=== PATIENT | female | born 1960 | race Caucasian/White ===

== ENCOUNTER 2018-04-04 05:52 | Day surgery (SDC) | payer MEDICARE, BC, MEDICAID ==
[2018-04-04 06:48] VITALS: BP 116/72; PULSE 94; TEMP 98.3
[2018-04-04] MEDS ORDERED: ADVIL200 MG PO (07:20)
[2018-04-04] MEDS ORDERED: ANTACID500 M1 CHEW (07:21)
[2018-04-04] MEDS ORDERED: BENEFIBER PO (07:21)
[2018-04-04] MEDS ORDERED: CALAMINE 180 M180 ML TP (07:22)
[2018-04-04] MEDS ORDERED: CLARITIN 1010 MG/TAB PO (07:22)
[2018-04-04] MEDS ORDERED: DEBROX OT (07:23)
[2018-04-04] MEDS ORDERED: DESITIN RAPID REL13% TP (07:24)
[2018-04-04] MEDS ORDERED: IMODIUM 2MG CAPS2 MG PO (07:24)
[2018-04-04] MEDS ORDERED: MAALOX ADVANCED1 CTB PO (07:25)
[2018-04-04] MEDS ORDERED: MILK OF MA400 MG/52 PO (07:26)
[2018-04-04] MEDS ORDERED: METAMUCIL3.4 GM/DOS PO (07:26)
[2018-04-04] MEDS ORDERED: MIRALAX PA17 GM/Dose PO (07:27)
[2018-04-04] MEDS ORDERED: PEPTO BISMOL262 MG PO (07:27)
[2018-04-04] MEDS ORDERED: ATIVAN 1MG T1 MG/TAB PO (07:28)
[2018-04-04] MEDS ORDERED: ROBITUSSIN DM 105 ML PO (07:28)
[2018-04-04] MEDS ORDERED: TRIAMCINOLONE A15 G3 TP (07:29)
[2018-04-04] MEDS ORDERED: SPECTAZOLE 1% C15 GM TP (07:30)
[2018-04-04] MEDS ORDERED: TYLENOL 325MG325 MG PO (07:31)
[2018-04-04] MEDS ORDERED: VANICREAM LITE240 ML TP (07:32)
[2018-04-04 10:10] VITALS: BP 128/66; PULSE 82; TEMP 97.7
[2018-04-04 10:22] VITALS: TEMP 97.2
[2018-04-04 10:25] VITALS: BP 125/66; PULSE 81
[2018-04-04 10:40] VITALS: BP 124/68; PULSE 78
== END 2018-04-04 12:00 | disposition home or self-care (01) ==
LOC: SDCO 05:52
DX: K08.89 Other specified disorders of teeth and supporting structures (principal); Q90.9 Down syndrome, unspecified
CPT/HCPCS: J0690; J2370; J2405; J2704; J7120